=== PATIENT | female | born 1990 | race Caucasian/White ===

== ENCOUNTER 2018-04-22 19:55 | Emergency (ER) | payer SELFPAY ==
[2018-04-22 20:13] VITALS: BP 116/63; PULSE 79; RESP 18; TEMP 97.9; O2SAT 100
[2018-04-22] MEDS ORDERED: Amoxicillin-Clav 875-125 mg Tab PO STA (20:25)
--- NOTE | 2018-04-22 20:33 | ED PDOC ---
HPI: CCC, URI, Sore Throat Time Seen by Provider: 04/22/18 20:20 Chief Complaint (Nursing): ENT Problem Chief Complaint (Provider): ENT Problem History Per: Patient History/Exam Limitations: no limitations Onset/Duration Of Symptoms: Days Current Symptoms Are (Timing): Still Present Location Of Pain: Ear(s) Additional Complaint(s): 27 y/o female with no significant PMHx presents to the ED complaining of right sided ear pain. Denies previous ear infections, recent swimming, travel via airplane, and taking medications prior to arrival. PMD: None Provided Past Medical History Reviewed: Historical Data, Nursing Documentation, Vital Signs Vital Signs: Last Vital Signs Temp 97.9 F 04/22/18 20:11 Pulse 79 04/22/18 20:11 Resp 18 04/22/18 20:11 BP 116/63 04/22/18 20:11 Pulse Ox 100 04/22/18 20:35 - Medical History PMH: No Chronic Diseases - Surgical History Surgical History: No Surg Hx - Family History Family History: States: Unknown Family Hx - Immunization History Hx Tetanus Toxoid Vaccination: No Hx Influenza Vaccination: No Hx Pneumococcal Vaccination: No - Home Medications Home Medications: Ambulatory Orders Medication Instructions Recorded Acetaminophen [Tylenol Extra 2 tab PO Q6 PRN #30 tablet 10/13/16 Strength] Amoxicillin/Clavulanate [Augmentin 1 tab PO BID #14 tab 04/22/18 875 MG-125 MG] Ciprofloxacin/Dexamethasone 1 drop OT BID #1 bottle 04/22/18 [Ciprodex 0.3%-0.1% 7.5 Ml] Ibuprofen [Motrin] 600 mg PO Q6 #20 tab 04/22/18 - Allergies Allergies/Adverse Reactions: Allergies Allergy/AdvReac Type Severity Reaction Status Date / Time No Known Allergies Allergy Verified 04/22/18 20:10 Review of Systems ROS Statement: Except As Marked, All Systems Reviewed And Found Negative ENT: Positive for: Ear Pain (right) Physical Exam - Reviewed Nursing Documentation Reviewed: Yes Vital Signs Reviewed: Yes - Physical Exam Appears: Positive for: No Acute Distress Head Exam: Positive for: ATRAUMATIC, NORMOCEPHALIC Skin: Positive for: Normal Color, Warm, Dry Eye Exam: Positive for: Normal appearance, EOMI, PERRL ENT: Positive for: Normal ENT Inspection, TM Is/Are (slightly retracted and erythematous), Other (tenderness to tragus ) Neck: Positive for: Normal, Painless ROM Cardiovascular/Chest: Positive for: Regular Rate, Rhythm Respiratory: Positive for: Normal Breath Sounds Extremity: Positive for: Normal ROM. Negative for: Deformity Neurologic/Psych: Positive for: Alert, Oriented (x3). Negative for: Motor/ Sensory Deficits - ECG O2 Sat by Pulse Oximetry: 100 (RA) Pulse Ox Interpretation: Normal Medical Decision Making Medical Decision Making: Time: 2024 Plan: -- Motrin 600 mg PO -- Augmentin [85 mg - 125 mg] 1 Tab PO Scribe Attestation: Documented by Dolly Vuong, acting as a scribe for Verenice Madsen PA-C. Provider Scribe Attestation: All medical record entries made by the Scribe were at my direction and personally dictated by me. I have reviewed the chart and agree that the record accurately reflects my personal performance of the history, physical exam, medical decision making, and the department course for this patient. I have also personally directed, reviewed, and agree with the discharge instructions and disposition. Disposition - Clinical Impression Clinical Impression: Right ear pain - Patient ED Disposition Is Patient to be Admitted: No - Disposition Disposition: Routine/Home Disposition Time: 20:42 Condition: STABLE Prescriptions: Amoxicillin/Clavulanate [Augmentin 875 MG-125 MG] 1 tab PO BID #14 tab Ciprofloxacin/Dexamethasone [Ciprodex 0.3%-0.1% 7.5 Ml] 1 drop OT BID #1 bottle Ibuprofen [Motrin] 600 mg PO Q6 #20 tab Instructions: Ear Infections (Otitis Media) Forms: [employer] (Swedish)
[2018-04-22] MEDS ORDERED: Amoxicillin-Clav 875-125 mg Tab PO ONE (20:43)
== END 2018-04-22 21:31 | disposition home or self-care (01) ==
LOC: H.ER 19:55
DX: H92.01 Otalgia, right ear (principal)